=== PATIENT | female | born 1975 | race Asian ===

== ENCOUNTER 2017-05-13 12:50 | Inpatient (IN) | payer SELFPAY ==
[~2017-05-13] VITALS: Ht 162.6 cm; Wt 64.4 kg
[2017-05-13] MEDS ORDERED: LACTATED RINGERS 1,000 ML IV SCH (13:23)
[2017-05-13] MEDS ORDERED: TERBUTALINE 1 MG/ML VIAL SUBQ ONE (14:38)
[2017-05-13 14:41] LABS: BASOPHILS # (AUTO) 0.1 K/uL (0.00-0.22); BASOPHILS % (AUTO) 1.5 % (0.0-2.0); EOSINOPHILS # (AUTO) 0.2 K/uL (0-0.4); EOSINOPHILS % (AUTO) 1.8 % (0.0-4.0); HEMATOCRIT 37.2 % (36-48); HEMOGLOBIN 12.6 g/dL (12.0-16.0); LYMPHOCYTES # (AUTO) 1.2 K/uL (2.5-16.5); LYMPHOCYTES % (AUTO) 13.4 % (20.5-51.1); MEAN CORPUSCULAR HEMOGLOBIN 32 pg (27-31); MEAN CORPUSCULAR HGB CONC 34 g/dL (33-37); MEAN CORPUSCULAR VOLUME 93 fL (80-94); MONOCYTES # (AUTO) 0.4 K/uL (0.8-1.0); MONOCYTES % (AUTO) 4.6 % (1.7-9.3); NEUTROPHILS # (AUTO) 7.2 K/uL (1.8-7.7); NEUTROPHILS % (AUTO) 78.7 % (42.2-75.2); PLATELET COUNT (AUTO) 164 K/uL (140-450); RED CELL DISTRIBUTION WIDTH 13.2 % (11.6-13.7); WHITE BLOOD COUNT (AUTO) 9.1 K/uL (4.8-10.8)
[2017-05-13 14:53] LABS: APPEARANCE,URINE CLEAR (CLEAR); BILIRUBIN,URINE NEGATIVE (NEGATIVE); BLOOD, URINE 3+ (NEGATIVE); COLOR,URINE YELLOW (YELLOW); LEUKOCYTE ESTERASE ,URINE NEGATIVE (NEGATIVE); NITRITE, URINE NEGATIVE (NEGATIVE); UGLUCOSE NEGATIVE (NEGATIVE)
[2017-05-13 14:56] LABS: RBC,URINE 11-20 (MOD) /HPF (0-5)
[2017-05-13] MEDS ORDERED: OXYTOCIN 10 UNITS/ML VIAL ONE (16:44)
[2017-05-13] MEDS ORDERED: METHYLERGONOVINE 0.2 MG/ML AMP ONE (16:45)
[2017-05-13] MEDS ORDERED: TRIAMCINOLONE 10 MG/ML 5ML VIAL ONE (16:45)
[2017-05-13] MEDS ORDERED: METOCLOPRAMIDE 10 MG/2 ML INJ VIAL IVP ONE (16:50)
[2017-05-13] MEDS ORDERED: ceFAZolin 1,000 MG VIAL IVP ONE (16:55)
[2017-05-13] MEDS ORDERED: MORPHINE PRES FREE 10 MG/10 ML AMP IV ONE (16:59)
[2017-05-13] MEDS ORDERED: KETOROLAC 30 MG/ML VIAL IVP PRN (17:15)
[2017-05-13] MEDS ORDERED: diphenhydrAMINE 50 MG/ML VIAL IVP PRN (17:15)
[2017-05-13] MEDS ORDERED: NALOXONE 0.4 MG/ML VIAL IVP PRN ×2 (17:15)
[2017-05-13] MEDS ORDERED: ONDANSETRON 4 MG/2 ML VIAL IVP PRN (17:15)
[2017-05-13] MEDS ORDERED: OXYTOCIN 20 UNITS/LR PREMIX 1,000 ML IV SCH (17:15)
[2017-05-13] MEDS ORDERED: IBUPROFEN 800 MG TAB PO PRN (21:25)
[2017-05-13] MEDS ORDERED: TEMAZEPAM 15 MG CAP PO PRN (21:25)
[2017-05-13] MEDS ORDERED: TRIMETHOBENZAMIDE 200 MG/2 ML SYR IM PRN (21:25)
[2017-05-13] MEDS ORDERED: BUPRENORPHINE 0.3 MG/ML VIAL IV PRN (21:25)
[2017-05-13] MEDS ORDERED: SIMETHICONE 80 MG TAB.CHEW PO PRN (21:25)
[2017-05-13] MEDS ORDERED: HYDROcodone/APAP 5/325 MG 1 TAB TAB PO PRN (21:25)
[2017-05-13] MEDS ORDERED: MEASLES, MUMPS, AND RUBELLA 1 VIAL SQVAC PRN (21:25)
[2017-05-13] MEDS ORDERED: METHYLERGONOVINE 0.2 MG/ML AMP IM PRN (21:25)
[2017-05-13] MEDS ORDERED: oxyCODONE/APAP 5/325 MG 1 TAB TAB PO PRN (21:25)
[2017-05-13] MEDS: OXYTOCIN 20 UNITS/LR PREMIX 1,000 ML IV SCH (22:30)
[2017-05-14 06:21] LABS: BASOPHILS # (AUTO) 0.3 K/uL (0.00-0.22); BASOPHILS % (AUTO) 2.1 % (0.0-2.0); EOSINOPHILS # (AUTO) 0.2 K/uL (0-0.4); EOSINOPHILS % (AUTO) 1.7 % (0.0-4.0); HEMATOCRIT 32.4 % (36-48); HEMOGLOBIN 10.9 g/dL (12.0-16.0); LYMPHOCYTES % (AUTO) 7.2 % (20.5-51.1); MEAN CORPUSCULAR HEMOGLOBIN 31 pg (27-31); MEAN CORPUSCULAR HGB CONC 34 g/dL (33-37); MEAN CORPUSCULAR VOLUME 93 fL (80-94); MONOCYTES # (AUTO) 0.4 K/uL (0.8-1.0); PLATELET COUNT (AUTO) 155 K/uL (140-450); RED BLOOD CELL COUNT(AUTO) 3.47 MIL/uL (4.20-5.40); RED CELL DISTRIBUTION WIDTH 12.9 % (11.6-13.7)
[2017-05-14] MEDS: OXYTOCIN 20 UNITS/LR PREMIX 1,000 ML IV SCH ×2 (06:30→13:23)
[2017-05-14 07:42] LABS: WHITE BLOOD COUNT (AUTO) 13.9 K/uL (4.8-10.8)
[2017-05-14 09:15] LABS: RAPID PLASMA REAGIN NON-REACTIVE (Non Reactiv)
--- NOTE | 2017-05-14 09:28 | NUR ---
PATIENT HAS BEEN SCREENED AND CATEGORIZED LOW NUTRITION RISK. PATIENT WILL BE SEEN WITHIN 7 DAYS OF ADMISSION. 05/20/17 VIKTORIYA LIND MBA, RD
[2017-05-14] MEDS ORDERED: SENNA 8.6 MG TAB PO SCH (21:00)
== END 2017-05-16 13:45 | disposition home or self-care (01) | DRG 766 ==
LOC: OBSVTOIN 12:50 → MLD 12:50 → MFCC 17:23
PROVIDERS: ADMIT Obstetrics & Gynecology; ATTEND Obstetrics & Gynecology
PROC: 10D00Z1 Extraction of Products of Conception, Low, Open Approach (ICD-10-PCS; principal; 2017-05-13 17:00)
DX: O34.211 Maternal care for low transverse scar from previous cesarean delivery (principal); O69.81X0 Labor and delivery complicated by cord around neck, without compression, not applicable or unspecified; Z37.0 Single live birth; Z3A.39 39 weeks gestation of pregnancy
CPT/HCPCS: 36415; 81001; 85025; 86592; 86762; 86886; 86900; 86901; 87340; J0690; J2210; J2270; J2405; J2590; J2765; J3105; J3301; J7060; J7120